=== PATIENT | female | born 1990 | race Caucasian/White ===

== ENCOUNTER 2017-07-29 11:46 | Emergency (ER) | payer OTHER ==
[2017-07-29] MEDS ORDERED: METHOCARBAMOL 500 MG TABLET PO ONE (12:22)
[2017-07-29] MEDS ORDERED: IBUPROFEN 800 MG TABLET PO ONE (12:22)
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
[2017-07-29 14:35] VITALS: BP 116/78
== END 2017-07-29 14:35 | disposition home or self-care (01) ==
LOC: ER 11:46
DX: S73.101A Unspecified sprain of right hip, initial encounter (principal); S43.401A Unspecified sprain of right shoulder joint, initial encounter; S16.1XXA Strain of muscle, fascia and tendon at neck level, initial encounter; M54.5 Low back pain; R51 Headache; M54.2 Cervicalgia; V49.40XA Driver injured in collision with unspecified motor vehicles in traffic accident, initial encounter; F17.200 Nicotine dependence, unspecified, uncomplicated
CPT/HCPCS: 72070; 72110; 81025; 99284

== ENCOUNTER 2020-02-13 11:37 | Emergency (ER) | payer OTHER ==
[2020-02-13 12:17] VITALS: BP 108/74
[2020-02-13] MEDS ORDERED: KETOROLAC TROMETHAMINE 60 MG/2 ML SDV IM ONE (13:35)
[2020-02-13] MEDS ORDERED: DEXAMETHASONE SOD PHOS INJ 10 MG/1 ML VIAL IM ONE (13:35)
--- NOTE | 2020-02-13 13:35 | ER Document Report ---
HPI - HPI Time Seen by Provider: 02/13/20 13:31 Notes: 21-year-old female patient presents emergency department chief complaint of sore throat and fever. Patient reports it is difficult to swallow. She reports her tonsils are swelling and have exudates. She states symptoms started yesterday. She denies any known exposure to any COVID-19 positive persons. - ROS Systems Reviewed and Negative: Yes All other systems reviewed and negative - CONSTITUTIONAL Constitutional: REPORTS: Fever - EENT EENT: REPORTS: Sore Throat Past Medical History - General Information source: Patient - Social History Smoking Status: Former Smoker Frequency of alcohol use: None Drug Abuse: None Family History: None - denies - Medical History Medical History: Negative Renal/ Medical History: Denies: Hx Peritoneal Dialysis Surgical Hx: Negative - Immunizations Immunizations up to date: Yes Vertical Provider Document - CONSTITUTIONAL Notes: PHYSICAL EXAMINATION: GENERAL: Well-appearing, well-nourished and in no acute distress. HEAD: Atraumatic, normocephalic. EYES: Pupils equal round extraocular movements intact, conjunctiva are normal. ENT: Nares patent, erythema, swelling and exudates noted to bilateral tonsils, left tonsil > right. Uvula midline. No evidence of peritonsillar abscess. Swallowing without difficulty. NECK: Normal range of motion, palpable cervical lymphadenopathy. LUNGS: No respiratory distress Musculoskeletal: Normal range of motion NEUROLOGICAL: Normal speech, normal gait. PSYCH: Normal mood, normal affect. SKIN: Warm, Dry, normal turgor, no rashes or lesions noted. - INFECTION CONTROL TRAVEL OUTSIDE OF THE [place] IN LAST 30 DAYS: No Course - Re-evaluation Re-evalutation: 02/13/20 15:00Dr. Ross came to evaluate. - Vital Signs Vital signs: Temp Pulse Resp BP Pulse Ox 99.5 F 99 16 108/74 100 02/13/20 12:16 02/13/20 12:16 02/13/20 12:16 02/13/20 12:16 02/13/20 12:16 Discharge - Discharge Clinical Impression: Pharyngitis Qualifiers: Pharyngitis/tonsillitis etiology: unspecified etiology Qualified Code(s): J02.9 - Acute pharyngitis, unspecified Condition: Stable Disposition: HOME, SELF-CARE Instructions: Sore Throat ([facility]) Additional Instructions: Please take medications as prescribed. Drink plenty of fluids. Return to the emergency department immediately if you develop difficulty breathing or difficulty swallowing. Prescriptions: Prednisone [Deltasone 20 mg Tablet] 3 tab PO DAILY 5 Days #15 tablet Ibuprofen [Motrin 800 mg Tablet] 800 mg PO Q8H PRN #30 tab PRN Reason: Forms: Return to Work
[2020-02-13] MEDS ORDERED: DEXAMETHASONE SOD PHOSPHATE INJ 4 MG/1 ML VIAL ONE (14:05)
[2020-02-13] MEDS ORDERED: DEXAMETHASONE SOD PHOSPHATE INJ 4 MG/1 ML VIAL IV ONE (14:30)
== END 2020-02-13 15:07 | disposition home or self-care (01) ==
LOC: ER 11:37
DX: J02.9 Acute pharyngitis, unspecified (principal); R50.9 Fever, unspecified; R13.10 Dysphagia, unspecified; Z87.891 Personal history of nicotine dependence
CPT/HCPCS: 99284; 90471; 96374; 87070; 87880; 87077; J1100; J1885